=== PATIENT | female | born 1995 | race Caucasian/White ===

== ENCOUNTER → 2019-03-16 | Outpatient (CLI) | payer OTHER ==
--- NOTE | 2019-03-16 16:15 | Diagnostic Imaging Report ---
INDICATION: survey. TECHNIQUE: Multiple real-time grayscale images were obtained over the gravid uterus. COMPARISON: None. FINDINGS: There are no prior studies available for comparison. There is a single live fetus in variable presentation. heart motion was noted and a rate of155 BPM was recorded. There were no abnormalities identified. The placenta is posterior and there is no previa. The amniotic fluid volume is within normal limits. The growth parameters are fairly uniform. IMPRESSION: 1. There is a single live fetus of approximately 19 weeks 1 day gestation +/- 1.5 weeks. The EDC is August 09, 2019. 2. There were no abnormalities identified. 3. The growth parameters are fairly uniform. Biometrical measurements are as follows: Biparietal 4.31 cm, age 19 weeks 1 days. Head circumference 16.18 cm, age 19 weeks 0 days. Abdominal circumference 13.5 cm, age 19 weeks 0 days. Femur length 2.92 cm, age 19 weeks 0 days. Sonographic estimate age: 19 weeks 1 days. Sonographic estimated date of delivery: 08/09/2019. Estimated Weight: 267 gm (+/- 39 gm). LMP percentile: 53%. heart rate: 155 beats per minute. number: 1 of 1. Dictated by: Dictated on workstation # [id number]
== END ==
LOC: RAD 13:52
PROVIDERS: ATTEND Obstetrics & Gynecology
DX: Z36.89 Encounter for other specified antenatal screening (principal); Z3A.19 19 weeks gestation of pregnancy
CPT/HCPCS: 76805

== ENCOUNTER 2019-07-25 16:25 | Outpatient (CLI) | payer OTHER, MEDICAID ==
[~2019-07-25] VITALS: Ht 172.7 cm; Wt 71.6 kg
--- NOTE | 2019-07-25 16:16 | NUR ---
AARTI SCHREIBER presented to unit via AMBULATORY from HOME, with c/o DECREASE MOVEMENT. AARTI SCHREIBER weighed, gowned, voided, and to bed. EFHM and TOCO applied, VS taken. AARTI SCHREIBER oriented to bed controls, call light, TV, heat, and A/C controls.
[2019-07-25 16:32] VITALS: BP 132/82
[2019-07-25 16:50] VITALS: BP 132/82
--- NOTE | 2019-07-25 16:53 | NUR ---
dr cummings notified of reactive NST and patient c/o decreased FM. no new orders or further intervention requested by dr cummings. preparing patient for discharge.
--- NOTE | 2019-07-25 17:00 | NUR ---
OUT OF WS VIA AMBULATION TO HOME SELF CARE WITH OUTPATIENT D/C INSTRUCTIONS.
--- NOTE | 2019-07-26 09:27 | Physician Query-Final Dx ---
Clinic Account Progress/Dx Physician Query: Please give diagnosis Please include # weeks gestation Date of Service Jul 25, 2019 at 16:25 ADARSH DOTSON Jul 26, 2019 09:27
== END 2019-07-25 17:00 | disposition home or self-care (01) ==
LOC: WSo 16:25 → LDRP 16:28 → WSo 17:00
PROVIDERS: ATTEND Obstetrics & Gynecology
DX: Z34.80 Encounter for supervision of other normal pregnancy, unspecified trimester (principal); Z3A.00 Weeks of gestation of pregnancy not specified
CPT/HCPCS: 59025

== ENCOUNTER 2019-07-28 06:02 | Inpatient (IN) | payer OTHER, MEDICAID ==
[2019-07-28] VITALS (61 sets, daily range): BP systolic 94–159; BP diastolic 55–115
[~2019-07-28] VITALS: Ht 172.7 cm; Wt 71.7 kg
--- NOTE | 2019-07-28 06:05 | NUR ---
AARTI SCHREIBER presented to unit via ambulation from home, accompanied by family, for INDUCTION. AARTI SCHREIBER weighed, gowned, voided, and to bed. EFHM and TOCO applied, VS taken. AARTI SCHREIBER oriented to bed controls, call light, TV, heat, and A/C controls.
[2019-07-28] MEDS ORDERED: FERR-84 PO (06:34)
[2019-07-28] MEDS ORDERED: PREN-142 PO (06:34)
[2019-07-28] MEDS: D5 LR IV SOLUTION 1,000 ML IV SCH ×2 (06:35→14:25)
[2019-07-28 07:05] LABS: BASOPHILS % (AUTO) 0 % (0-10); EOSINOPHILS % (AUTO) 0 % (0-10); HEMATOCRIT 35 % (35-52); HEMOGLOBIN 12.3 G/DL (11.5-16.0); LYMPHOCYTES # (AUTO) 2.6 X 10^3 (1.0-4.0); LYMPHOCYTES % (AUTO) 21 % (12-44); MEAN CORPUSCULAR HEMOGLOBIN 34 PG (25-34); MEAN CORPUSCULAR HGB CONC 35 G/DL (32-36); MEAN CORPUSCULAR VOLUME 98 FL (80-99); MEAN PLATELET VOLUME 10.4 FL (7.4-10.4); MONOCYTES # (AUTO) 0.9 X 10^3 (0.0-1.0); MONOCYTES % (AUTO) 7 % (0-12); NEUTROPHILS % (AUTO) 72 % (42-75); PLATELET COUNT 236 10^3/uL (130-400); RED CELL DISTRIBUTION WIDTH 12.6 % (10.0-14.5); WHITE BLOOD COUNT 12.5 10^3/uL (4.3-11.0)
--- NOTE | 2019-07-28 08:13 | History & Physical-OB ---
OB - Chief Complaint & HPI Date/Time Date of Admission: Date of Admission: Jul 28, 2019 at 06:02 Date seen by a Provider: Jul 28, 2019 Time Seen by a Provider: 07:50 Chief Complaint/History OB-Reason for Admission/Chief: Induction of Labor Hx : 1 Hx Para: 0 Expected Date of Delivery: Aug 04, 2019 Gestational Age in Weeks: 39 Gestational Age in Days: 0 Admission Nurse Assessment Rev: Yes Allergies and Home Medications Allergies Coded Allergies: No Known Drug Allergies (Unverified , 07/28/19) Home Medications Ferrous Sulfate 325 Mg Tablet, 325 MG PO DAILY, (Reported) Vit No.124/Iron/FA 1 Each Tablet, 1 EACH PO DAILY, (Reported) Patient Home Medication List Home Medication List Reviewed: Yes OB - History Hx of Present Care: Yes Ultrasounds: Normal mid trimester US Obstetrical Complications: None Medical Complications: None Patient Past Medical History n/a Social History/Family History Alcohol Use: Denies Use Recreational Drug Use: No 2nd Hand Smoke Exposure: No Immunizations Date of Influenza Vaccine: Mar 31, 2019 OB - Admission Exam Physical Exam Vitals: Vital Signs 07/28/19 07/28/19 07:00 07:48 Temp 36.9 Pulse 115 Resp 18 B/P (MAP) 140/65 (90) Pulse Ox 99 O2 Delivery Room Air HEENT: NCAT Heart: Rhythm Normal Lungs: Clear Abdomen: Gravid Extremities: Normal Reflexes: Normal Cervical Dilatation: 4cm Effacement: 75% Station: 0 Membranes: Intact Heart Rate: 130's Accelerations: Accelerations Present Decelerations: No Decelerations Short Term Variability: Present Fci Variability: Average (6-25) Contractions on Admission: 6-10 Minutes Apart Delaney Scoring Tool (Modified) Dilation (cm): 3-4cm (2) Effacement (%): 51-79% (2) Descent/Station: -1,0 (2) Cervix Consistency: Soft (2) Cervix Position: Anterior (2) Subtract 1 point for: Nulliparity (-1) Delaney Score: 9 Labs Laboratory Tests Test 07/28/19 06:50 Range/Units White Blood Count 12.5 H 4.3-11.0 10^3/uL Red Blood Count 3.58 L 4.35-5.85 10^6/uL Hemoglobin 12.3 11.5-16.0 G/DL Hematocrit 35 35-52 % Mean Corpuscular Volume 98 80-99 FL Mean Corpuscular Hemoglobin 34 25-34 PG Mean Corpuscular Hemoglobin Concent 35 32-36 G/DL Red Cell Distribution Width 12.6 10.0-14.5 % Platelet Count 236 130-400 10^3/uL Mean Platelet Volume 10.4 7.4-10.4 FL Neutrophils (%) (Auto) 72 42-75 % Lymphocytes (%) (Auto) 21 12-44 % Monocytes (%) (Auto) 7 0-12 % Eosinophils (%) (Auto) 0 0-10 % Basophils (%) (Auto) 0 0-10 % Neutrophils # (Auto) 9.0 H 1.8-7.8 X 10^3 Lymphocytes # (Auto) 2.6 1.0-4.0 X 10^3 Monocytes # (Auto) 0.9 0.0-1.0 X 10^3 Eosinophils # (Auto) 0.0 0.0-0.3 10^3/uL Basophils # (Auto) 0.0 0.0-0.1 10^3/uL OB - Assessment/Plan/Diagnosis Assessment Assessment: induction of labor Admission Dx 23 yo @ 39 weeks Induction of labor GBS neg Admission Status: Inpatient Order (span 2 midnights) Reason for Inpatient Admission: Induction of labor 39 weeks Plan Induction Method: REBECCA PAUL DO Jul 28, 2019 08:13
[2019-07-28] MEDS ORDERED: OXYTOCIN PRE-MIX DRIP 500 ML IV SCH ×2 (09:36→17:56)
[2019-07-28] MEDS ORDERED: SUFENTA 0.6MCG/ML BUPIVA 0.125 100 ML ONE (13:53)
[2019-07-28] MEDS ORDERED: CATHETER FLUSH 10 ML SYR IV SCH ×2 (14:00→22:00)
[2019-07-28] MEDS ORDERED: LIDOCAINE PF 2% 5 ML (XYLOCAINE) VIAL ONE (14:03)
[2019-07-28] MEDS ORDERED: fentaNYL INJECTION 100 MCG/2 ML AMP ONE (14:03)
[2019-07-28] MEDS ORDERED: BUPIVACAINE 0.25% 30 ML (SENSORCAINE) VIAL ONE (14:03)
[2019-07-28] MEDS ORDERED: LACTATED RINGERS 1,000 ML IV ONE ×2 (14:33)
[2019-07-28] MEDS ORDERED: ONDANSETRON 4 MG/2 ML (SDV) Z0FRAN IV PRN (14:45)
[2019-07-28] MEDS ORDERED: NALOXONE 0.4 MG/ML 1 ML (NARCAN) VIAL IV PRN (14:45)
[2019-07-28] MEDS ORDERED: EPIDURAL (SUFENTA 0.6MCG/ML BUPIVA 0.125%) 100 ML BAG EPI PRN (14:45)
[2019-07-28] MEDS ORDERED: LIDOCAINE/EPI 2% 1:200,00 (XYLOCAINE) 10 ML VIAL ONE (16:23)
[2019-07-28] MEDS ORDERED: BENZOCAINE/MENTHOL (DERMOPLAST) 60 ML CAN TP PRN (18:00)
[2019-07-28] MEDS ORDERED: MEASLES,MUMPS,RUBELLA 1 EA INJ SQ ONE (18:00)
[2019-07-28] MEDS ORDERED: HYDROcodone/APAP 5 MG/325 MG (LORTAB) TAB PO PRN (18:00)
[2019-07-28] MEDS ORDERED: WITCH HAZEL(TUCKS) 40 EA JAR TOP PRN (18:00)
[2019-07-28] MEDS ORDERED: TETANUS,DIPTH,PERTUSS P/F (BOOSTRIX) 0.5 ML VIAL IM ONE (18:00)
[2019-07-28] MEDS ORDERED: DIBUCAINE (NUPERCAINAL) 1% OINT 30 GM TOP PRN (18:00)
--- NOTE | 2019-07-28 18:01 | OB Labor & Delivery Record ---
L&D History Date of Service Date of Service: Jul 28, 2019 History Expected Date of Delivery: Aug 04, 2019 Gestational Age in Weeks: 39 Hx : 1 Hx Para: 0 Complications Events: Routine care Operative Indications (Cesarea: N/A-Vaginal Delivery Intrapartal Events: None L&D Stage1 Stage One Onset of Labor - Date: Jul 28, 2019 Monitors and Tracing Monitor Mode: External Heart Rate: 150 Monitor Accelerations: Uniform Monitor Decelerations: None Station: -1 Customer Service Associate Variability: Average (6-10) Short Term Variability: Present Presentation: Vertex Vital Signs VS - Last 72 Hours, by Label 07/28/19 07/28/19 07/28/19 07/28/19 07:00 07:30 07:48 08:00 Temp 36.5 36.9 36.9 Pulse 115 115 93 Resp 18 18 18 B/P (MAP) 140/65 (90) 122/79 (93) Pulse Ox 99 O2 Delivery Room Air Room Air Room Air 07/28/19 07/28/19 07/28/19 07/28/19 09:05 10:05 10:20 10:35 Temp 36.8 36.7 Pulse 96 89 97 96 Resp 18 18 18 18 B/P (MAP) 126/99 (108) 129/67 (87) 120/68 (85) 118/66 (83) O2 Delivery Room Air Room Air Room Air Room Air 07/28/19 07/28/19 10:50 11:05 Pulse 91 107 Resp 18 18 B/P (MAP) 119/67 (84) 127/68 (87) O2 Delivery Room Air Room Air Rupture of Membranes Spontaneous Ruture of Membrane: No Amniotic Membrane Rupture Time: 0753 Amniotic Membrane Fluid Desc.: Clear Vaginal Bleeding Description: Normal Show Induction/Anesthesia Epidural Cath Placement - Time: 14:30 Progress/Notes Patient had AROM this AM, pitocin augmentation started to max dose of 6 mu/min. Epidural requested, and received. Progressed to complete and 0 station L&D Stage2 Stage Two Stage II Date: Jul 28, 2019 Monitors and Tracing Monitor Mode: External Heart Rate: 150 Monitor Accelerations: Uniform Monitor Decelerations: Variable Snf Variability: Average (6-10) Short Term Variability: Present Position: Right Occiput Anterior Presentation: Vertex Cord Descript/Complications Cord Vessel Description: 3 Vessels Complications nuchal cord x 1 Delivery Type Delivery Method: Spontaneous Vaginal Anterior Shoulder: Right Episiotomy/Perineal Laceration Laceraction(s)/Extensions: Yes Episiotomy Description: Midline Degree (describe repair) midline episiotomy repaired using 3-0 rapide and 2-0 vicryl suture in usual fashion Condition of Delivery 1 minute Comment: 9 5 minute Comment: 9 Notes Live male infant weight 8lbs 2 oz Condition of Infant Condition of Infant: Living Exam: No Observed Abnormalities Resuscitation Resuscitation: N/A - Spontaneous Resp L&D Stage3 Stage Three Stage III Date: Jul 28, 2019 Pictocin Pitocin Administration mu/min: 2 Pitocin ml/hr: 2 Pitocin Administration Comment: 30 mu wide open at delivery of placenta Placenta Delivery Placenta Delivery: Spontaneous Delivery Summary Summary Estimated blood loss (mL): 350 Attending at delivery: Rebecca Marin DO Condition of Delivery Examined: Cervix Examined, Uterus Explored Post Hemorrhage: No Condition of Mother stable Condition of (s) stable REBECCA MARIN DO Jul 28, 2019 18:01
[2019-07-28] MEDS ORDERED: METHYLERGONOVINE 0.2 MG/ML (METHERGINE) AMP ONE (18:31)
[2019-07-28] MEDS ORDERED: DOCUSATE SODIUM 100 MG (COLACE) CAP PO SCH (21:00)
--- NOTE | 2019-07-28 23:23 | NUR ---
Madhuri, media clerk notified of room transfer previously entered via [employer] system, understanding voiced.
[2019-07-28] MEDS: IBUPROFEN 600 MG (MOTRIN) TAB PO SCH (23:35)
[2019-07-29] MEDS: IBUPROFEN 600 MG (MOTRIN) TAB PO SCH ×3 (05:11→18:34)
[2019-07-29 05:14] VITALS: BP 116/55
[2019-07-29 05:51] LABS: BASOPHILS % (AUTO) 0 % (0-10); EOSINOPHILS # (AUTO) 0.1 10^3/uL (0.0-0.3); EOSINOPHILS % (AUTO) 0 % (0-10); HEMATOCRIT 27 % (35-52); LYMPHOCYTES # (AUTO) 3.5 X 10^3 (1.0-4.0); LYMPHOCYTES % (AUTO) 19 % (12-44); MEAN CORPUSCULAR HGB CONC 34 G/DL (32-36); MEAN CORPUSCULAR VOLUME 99 FL (80-99); MEAN PLATELET VOLUME 10.2 FL (7.4-10.4); MONOCYTES # (AUTO) 1.5 X 10^3 (0.0-1.0); MONOCYTES % (AUTO) 8 % (0-12); NEUTROPHILS # (AUTO) 13.3 X 10^3 (1.8-7.8); NEUTROPHILS % (AUTO) 72 % (42-75); PLATELET COUNT 205 10^3/uL (130-400); RED CELL DISTRIBUTION WIDTH 12.5 % (10.0-14.5); WHITE BLOOD COUNT 18.4 10^3/uL (4.3-11.0)
[2019-07-29 05:54] LABS: MEAN CORPUSCULAR HEMOGLOBIN 33 PG (25-34)
--- NOTE | 2019-07-29 06:52 | Anesthesia-Regional Post-Op ---
Regional Patient Condition Mental Status: Alert, Oriented x3 Circulation: Same as Pre-Op Headache: Absent Sensation: Full Recovery Motor Block: Absent Post Op Complications Complications None Follow Up Care/Instructions Patient Instructions None needed. Anesthesia/Patient Condition Patient is doing well, no complaints, stable vital signs, no apparent adverse anesthesia problems. No complications reported per nursing. D/C home per [facility] [place] Criteria: Yes PENELOPE FLORES CRNA Jul 29, 2019 06:52
[2019-07-29] MEDS ORDERED: PRENATAL VITAMIN 1 EA TAB PO SCH (07:00)
--- NOTE | 2019-07-29 07:14 | Postpartum Progress Note ---
EVA ROA,MED STUDENT 07/29/19 0714: Note Note Day # 1 Subjective: Patient is without complaints. Ambulating, voiding, has not stooled yet. Tolerating a regular diet without nausea or vomiting. Normal lochia. Pain is well controlled with oral pain medications. Son feeding without difficulty. Objective: Physical Exam: General - Alert and oriented, no apparent distress Abdomen - Soft, appropriately tender to palpation, non-distended, fundus firm at umbilicus Extremities - no edema, negative Natalie's bilaterally CV: RRR, no gallops, murmurs or rubs Assessment: post- day # 1, status post spontaneous vaginal delivery. Recovering well, hemodynamically stable Acute blood loss anemia Plan: Routine care. Encourage breast feeding. Encourage ambulation. Ferrous sulfate supplementation. Plan for discharge tomorrow Vitals - Labs Vital Signs - I&O Vital Signs Date Time Temp Pulse Resp B/P (MAP) Pulse Ox O2 Delivery O2 Flow Rate FiO2 07/29/19 05:14 37.0 84 20 116/55 (75) 97 Room Air 07/28/19 23:35 37.6 106 20 94/57 (69) 100 Room Air 07/28/19 22:00 37.2 99 18 122/63 (82) Room Air 07/28/19 21:45 96 18 130/68 (88) Room Air 07/28/19 21:30 89 18 124/62 (82) Room Air 07/28/19 21:15 100 18 133/65 (87) Room Air 07/28/19 21:00 94 18 135/67 (89) Room Air 07/28/19 20:45 101 18 140/71 (94) Room Air 07/28/19 20:30 93 18 139/72 (94) Room Air 07/28/19 20:15 96 18 134/63 (86) Room Air 07/28/19 19:45 114 18 136/74 (94) Room Air 07/28/19 19:30 110 18 148/65 (92) Room Air 07/28/19 19:15 100 18 134/60 (84) Room Air 07/28/19 19:00 123 20 159/115 (130) Room Air 07/28/19 18:30 112 20 129/60 (83) Room Air 07/28/19 18:15 121 20 129/63 (85) Room Air 07/28/19 18:00 106 20 123/67 (85) 100 Room Air 07/28/19 17:30 118 20 128/73 (91) 100 Room Air 07/28/19 17:00 93 20 140/68 (92) 100 Room Air 07/28/19 16:45 115 20 147/74 (98) 100 Room Air 07/28/19 16:20 88 20 124/62 (82) 100 Room Air 07/28/19 16:03 36.9 89 20 97/61 (73) 100 Room Air 07/28/19 15:50 88 20 128/65 (86) 100 Room Air 07/28/19 15:35 86 20 144/65 (91) 100 Room Air 07/28/19 15:12 127 20 113/68 (83) 100 Room Air 07/28/19 15:05 75 20 132/66 (88) 100 Room Air 07/28/19 15:00 36.6 99 20 119/61 (80) 99 Room Air 07/28/19 14:58 137 20 122/64 (83) 99 Room Air 07/28/19 14:55 112 20 120/58 (78) 99 Room Air 07/28/19 14:51 85 20 113/55 (74) 99 Room Air 07/28/19 14:49 82 20 124/60 (81) 99 Room Air 07/28/19 14:46 134 20 102/63 (76) 100 Room Air 07/28/19 14:43 130 20 110/67 (81) Room Air 07/28/19 14:40 121 20 120/59 (79) 99 Room Air 07/28/19 14:36 96 20 121/57 (78) 100 Room Air 07/28/19 14:33 74 20 121/56 (77) 100 Room Air 07/28/19 14:30 83 20 130/61 (84) 99 Room Air 07/28/19 14:28 93 20 126/60 (82) Room Air 07/28/19 14:26 85 20 131/66 (87) 99 Room Air 07/28/19 14:23 90 20 127/67 (87) 99 Room Air 07/28/19 14:20 91 20 135/80 (98) 99 Room Air 07/28/19 14:10 103 140/80 (100) Room Air 07/28/19 14:05 88 130/78 (95) Room Air 07/28/19 13:50 83 132/79 (96) Room Air 07/28/19 13:30 36.8 07/28/19 13:20 110 134/79 (97) Room Air 07/28/19 13:05 86 133/76 (95) Room Air 07/28/19 12:50 99 136/65 (88) Room Air 07/28/19 12:35 100 122/68 (86) Room Air 07/28/19 12:30 36.8 07/28/19 12:20 100 122/68 (86) Room Air 07/28/19 12:05 89 121/68 (85) Room Air 07/28/19 11:50 90 126/74 (91) Room Air 07/28/19 11:35 91 116/61 (79) Room Air 07/28/19 11:20 35.9 90 18 131/69 (89) Room Air 07/28/19 11:05 107 18 127/68 (87) Room Air 07/28/19 10:50 91 18 119/67 (84) Room Air 07/28/19 10:35 96 18 118/66 (83) Room Air 07/28/19 10:20 97 18 120/68 (85) Room Air 07/28/19 10:05 36.7 89 18 129/67 (87) Room Air 07/28/19 09:05 36.8 96 18 126/99 (108) Room Air 07/28/19 08:00 93 18 122/79 (93) Room Air 07/28/19 07:48 36.9 115 18 99 Room Air 07/28/19 07:30 36.9 Labs Laboratory Tests 07/29/19 05:40: White Blood Count 18.4H, Red Blood Count 2.69L, Hemoglobin 9.0#L, Hematocrit 27L , Mean Corpuscular Volume 99, Mean Corpuscular Hemoglobin 33, Mean Corpuscular Hemoglobin Concent 34, Red Cell Distribution Width 12.5, Platelet Count 205, Mean Platelet Volume 10.2, Neutrophils (%) (Auto) 72, Lymphocytes (%) (Auto) 19, Monocytes (%) (Auto) 8, Eosinophils (%) (Auto) 0, Basophils (%) (Auto) 0, Neutrophils # (Auto) 13.3H, Lymphocytes # (Auto) 3.5, Monocytes # (Auto) 1.5H, Eosinophils # (Auto) 0.1, Basophils # (Auto) 0.0 TIMI MARIN DO 07/29/19 0757: Note Note Verification and Attestation of Medical Student E/M Service A medical student performed and documented this service in my presence. I reviewed and verified all information documented by the medical student and made modifications to such information, when appropriate. I personally performed the physical exam and medical decision making. Timi Marin, Jul 29, 2019,07:57 EVA ROA,MED STUDENT Jul 29, 2019 07:14 TIMI MARIN DO Jul 29, 2019 07:57
--- NOTE | 2019-07-29 08:00 | NUR ---
Dr Holloway here to see pt.
[2019-07-29] MEDS ORDERED: FERROUS SULF 325 MG (IRON) TAB PO SCH (09:00)
[2019-07-29 09:30] VITALS: BP 116/53
[2019-07-29] MEDS ORDERED: ACHD5005 PO (12:05)
[2019-07-29] MEDS ORDERED: IBUP-844 PO (12:05)
[2019-07-29] MEDS ORDERED: DOCU-244 PO (12:05)
[2019-07-29] MEDS ORDERED: BENZ78AE2 TP (12:05)
[2019-07-29] MEDS ORDERED: DIBU30OI TOP (12:05)
--- NOTE | 2019-07-29 12:06 | Discharge Inst-Women's Service ---
Discharge Inst-Women's Serv Depart Medication/Instructions New, Converted or Re-Newed RX: RX on Chart Final Diagnosis PPD 1 NVD Problems Reviewed?: Yes Consults/Follow Up Additional Follow Up: Yes Orders/Referrals Dr. Marin in 6 weeks Activity Activity: Activity as Tolerated Driving Instructions: No Driving for 1 Week NO SMOKING: NO SMOKING Nothing Inside Vagina: No Douching, No [place], No Tampons Diet Discharge Diet: No Restrictions Symptoms to Report to : Bleeding Excessive, Pain Increased, Fever Over 101 Degrees F, Vaginal Bleeding Increase, Questions/Concerns For Any Problems or Questions: Contact Your Physician REBECCA MARIN DO Jul 29, 2019 12:06
[2019-07-29 12:40] VITALS: BP 121/70
--- NOTE | 2019-07-29 14:00 | NUR ---
Shower set up for pt at this time. IV covered. Pt to shower independently, will call if in need of assistance.
--- NOTE | 2019-07-29 17:30 | NUR ---
Prescriptions provided to pt to fill prior to dismissal. Boarder status explained. IV removed.
--- NOTE | 2019-07-29 18:47 | NUR ---
Discharge instructions explained to pt with copy provided to pt. Pt notified of follow up appointment. Pt verbalizes understanding of instructions and signs to verify. Pt denies questions or concerns at this time. 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
== END 2019-07-29 18:47 | disposition home or self-care (01) | DRG 806 ==
LOC: LDRP 06:02
PROVIDERS: ADMIT Obstetrics & Gynecology; ATTEND Obstetrics & Gynecology
PROC: 10E0XZZ Delivery of Products of Conception, External Approach (ICD-10-PCS; principal; 2019-07-28)
PROC: 0W8NXZZ Division of Female Perineum, External Approach (ICD-10-PCS; 2019-07-28)
PROC: 10907ZC Drainage of Amniotic Fluid, Therapeutic from Products of Conception, Via Natural or Artificial Opening (ICD-10-PCS; 2019-07-28)
DX: O69.81X0 Labor and delivery complicated by cord around neck, without compression, not applicable or unspecified (principal); O90.81 Anemia of the puerperium; D62 Acute posthemorrhagic anemia; Z37.0 Single live birth; Z3A.39 39 weeks gestation of pregnancy
CPT/HCPCS: 36415; 85025; 86850; 86900; 86901